=== PATIENT | female | born 1955 | race Caucasian/White ===

== ENCOUNTER 2016-09-25 01:52 | Emergency (ER) | payer OTHER ==
[~2016-09-25 01:52] MED LIST: ACETAMINOPHEN500 MG PO; CLONAZEPAM0.5 MG PO; FERROUS SULFAT324 MG PO; GLIPIZIDE5 MG PO; LAMICTAL100 MG PO; LOSARTAN POTASS1 TA1 PO; METFORMIN HCL850 MG PO; NEURONTIN300 MG PO; PERCOCET1 TA1 PO; PRILOSEC40 MG PO; PROAIR HFA IN; REQUIP0.25 MG PO; VENLAFAXINE HCL25 MG PO
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
--- NOTE | 2016-09-25 02:10 | ED ORDER SUMMARY ---
..... Patient: LELA FANG OrderSheet [facility] VisitID: [id number] [address] [place] [address] 61y, F Registration Date/Time: 09/25/2016 ORDER SHEET Weight: 86.6 kg (stated) Allergies: Estrogen , PCN GENERAL ORDERS: MEDICATION ORDERS: Azithromycin PO 500 mg (NOW) (02:09/25/2016 Miriam Tatum) (2:08 HSoule) Naproxen PO 500 mg (NOW) (02:09/25/2016 Miriam Tatum) (2:09 HSoule) IV FLUIDS: ORDER SHEET NOTES: [Electronically signed by Lisa Roy (02:09/25/2016)] [Electronically signed by Sung Perry Dr. (10:23 09/30/2016)] [Electronically locked/signed by Lisa Roy (09/25/2016)]
--- NOTE | 2016-09-25 02:10 | ED CLINICAL REPORT ---
Clinical Report - Physicians/Mid Levels [facility] [address] [place], [place] [address] 09/25/2016 1:52 Patient: LELA FANG Time Seen: 0155. Arrived- By private vehicle. Historian- patient. HISTORY OF PRESENT ILLNESS Chief Complaint: EARACHE. Modifying factors- worsened by cough. Not relieved by anything. This started today and is still present and worsening. It was abrupt in onset and has been constant but is not gone now. Onset during rest. The patient has had ear pain. She has had nasal congestion and a nasal discharge. Similar symptoms previously: None. Recent medical care: Not recently seen/assessed. REVIEW OF SYSTEMS No difficulty breathing, chest pain, abdominal pain or skin rash. All systems otherwise negative, except as recorded above. PAST HISTORY See nurses notes. Medications: Ferrous Sulfate Oral 325 mg, daily. Gabapentin Oral (Capsule 300 mg) 1 capsule, at bedtime. Glypisde 5mg bid . LamoTRIgine Oral 100mg day . Lipitor Oral. Lorsartin/hctz 100/25mg day. Metformin HCl Oral 850 mg, 2x a day. Omeprazole Oral 40 mg, daily. Requip Oral 0.25 mg, hs . Venlafaxine HCl Oral 75 mg, at bedtime. Allergies: Estrogen . PCN. SOCIAL HISTORY Never smoker. Occasional alcohol use. No drug use. Is a local resident. ADDITIONAL NOTES The nursing notes have been reviewed. PHYSICAL EXAM Vital Signs: 09/25/2016 01:56 BP: 132/76. HR: 76. RR: 17. O2 saturation: 100%. Temp: 98.1 F. Ang-Sanchez pain scale: 4/10. Blood pressure normal. Oxygen saturation normal. Appearance: Alert. No acute distress. ENT: (positive air-fluid levels in the left tympanic membrane. No perforation. Appears bulging. Loss of normalarchitecture of the ear. Right tympanic membrane is normal with normal cone of light. Bilateral external auditory canals are normal. No proptosis of the ear. No tenderness of the mastoid. No crepitus. No overlying skin changes over the mastoid process.). Nose: Nose normal. Neck: Normal inspection. Neck supple. No meningeal signs. CVS: Normal heart rate and rhythm. Heart sounds normal. Respiratory: No respiratory distress. Breath sounds normal. Abdomen: Soft and nontender. : Normal genitalia. Skin: Skin warm and dry. Normal skin color. No rash. Normal skin turgor. CLINICAL IMPRESSION 09/25/2016 01:56 BP: 132/76. HR: 76. RR: 17. O2 saturation: 100%. Temp: 98.1 F. Ang-Sanchez pain scale: 4/10. Blood pressure normal. Oxygen saturation normal. Acute serous left otitis media. No perforation of left tympanic membrane. INSTRUCTIONS Warnings: GENERAL WARNINGS: Return or contact your physician immediately if your condition worsens or changes unexpectedly, if not improving as expected, or if other problems arise. Specifically return if pain, vomiting, bleeding, breathing difficulty or fever. Your Current Medications: CONTINUE TAKING THE FOLLOWING MEDICATIONS: Ferrous Sulfate Oral : 325 mg daily. Gabapentin Oral : Capsule 300 mg, 1 capsule at bedtime. Glypisde 5mg bid *. LamoTRIgine Oral : 100mg day. Lipitor Oral. Lorsartin/hctz 100/25mg day*. Metformin HCl Oral : 850 mg 2x a day. Omeprazole Oral : 40 mg daily. Requip Oral : 0.25 mg hs. Venlafaxine HCl Oral : 75 mg at bedtime. Prescription Medications: Grayling 5 mg / 325 mg tablets: take 1 orally every 6 hours. Dispense ten (10). No refill. Substitution is permissible. Azithromycin Z-Ponce: Take according to package instructions. No refills. (Disp 1 package) Naproxen 500 mg: take 1 orally every 12 hours as needed for pain, stiffness or swelling. Dispense twenty (20). No refills. Follow-up: Return to the emergency department as needed. Follow up with your doctor in three days. Reason for referral: recheck today's concerns. Summary of care provided to patient via paper. Screening today revealed the patient's blood pressure to be in the normal range. The patient should follow up with a primary care provider for blood pressure management. Understanding of the discharge instructions verbalized by patient. (Electronically signed by Sung Perry Dr. 09/30/2016 10:23)
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
--- NOTE | 2016-09-25 02:10 | ED ORDER SUMMARY ---
..... Patient: LELA FANG OrderSheet [facility] VisitID: [id number] [address] [place] [address] 61y, F Registration Date/Time: 09/25/2016 ORDER SHEET Weight: 86.6 kg (stated) Allergies: Estrogen , PCN GENERAL ORDERS: MEDICATION ORDERS: Azithromycin PO 500 mg (NOW) (02:09/25/2016 Miriam Tatum) (2:08 HSoule) Naproxen PO 500 mg (NOW) (02:09/25/2016 Miriam Tatum) (2:09 HSoule) IV FLUIDS: ORDER SHEET NOTES: [Electronically signed by Lisa Roy (02:09/25/2016)] [Electronically signed by Sung Perry Dr. (10:23 09/30/2016)] [Electronically locked/signed by Lisa Roy (09/25/2016)]
--- NOTE | 2016-09-30 10:23 | ED DISCHARGE INSTRUCTIONS ---
Patient: LELA FANG General Instructions [facility] VisitID: [id number] [address] [place] [address] 61y, F Registration Date/Time: 09/25/2016 09/25/2016 01:56 BP: 132/76. HR: 76. RR: 17. O2 saturation: 100%. Temp: 98.1 F. Ang-Sanchez pain scale: 4/10. Blood pressure normal. Oxygen saturation normal. Acute serous left otitis media. No perforation of left tympanic membrane. INSTRUCTIONS Warnings: GENERAL WARNINGS: Return or contact your physician immediately if your condition worsens or changes unexpectedly, if not improving as expected, or if other problems arise. Specifically return if pain, vomiting, bleeding, breathing difficulty or fever. Your Current Medications: CONTINUE TAKING THE FOLLOWING MEDICATIONS: Ferrous Sulfate Oral : 325 mg daily. Gabapentin Oral : Capsule 300 mg, 1 capsule at bedtime. Glypisde 5mg bid *. LamoTRIgine Oral : 100mg day. Lipitor Oral. Lorsartin/hctz 100/25mg day*. Metformin HCl Oral : 850 mg 2x a day. Omeprazole Oral : 40 mg daily. Requip Oral : 0.25 mg hs. Venlafaxine HCl Oral : 75 mg at bedtime. Prescription Medications: Nicolaus 5 mg / 325 mg tablets: take 1 orally every 6 hours. Dispense ten (10). No refill. Substitution is permissible. Azithromycin Z-Ponce: Take according to package instructions. No refills. (Disp 1 package) Naproxen 500 mg: take 1 orally every 12 hours as needed for pain, stiffness or swelling. Dispense twenty (20). No refills. Follow-up: Return to the emergency department as needed. Follow up with your doctor in three days. Reason for referral: recheck today's concerns. Summary of care provided to patient via paper. Screening today revealed the patient's blood pressure to be in the normal range. The patient should follow up with a primary care provider for blood pressure management. Understanding of the discharge instructions verbalized by patient. ADDITIONAL INFORMATION Middle Ear Infection (Adult) You have an infection of the middle ear (the space behind the eardrum). It can occur as a result of the common cold. This is because congestion can block the internal passage (eustachian tube) that drains fluid from the middle ear. When the middle ear fills with fluid, bacteria can grow there and cause an infection. Oral antibiotics are used to treat this illness, not ear drops. Symptoms usually start to improve within 1-2 days of treatment. Home Care: Finish all of the antibiotic medicine prescribed, even though you may feel better after the first few days. You may use acetaminophen (Tylenol) or ibuprofen (Motrin, Advil) to control pain, unless something else was prescribed. [NOTE: If you have chronic liver or kidney disease or have ever had a stomach ulcer or GI bleeding, talk with your doctor before using these medicines.] (Do not give aspirin to anyone under 18 years of age who is ill with a fever. It may cause severe liver damage.) Follow Up with your doctor or this facility in two weeks if all symptoms have not cleared, or if hearing does not return to normal within one month. Get Prompt Medical Attention if any of the following occur: Ear pain gets worse or does not improve after three days of treatment Unusual drowsiness or confusion Neck pain, stiff neck or headache Fluid or blood draining from the ear canal Fever of 100.4F (38C) or higher after 3 days of antibiotics, or as directed by your healthcare provider Convulsion (seizure) Hydrocodone Bitartrate, Acetaminophen Oral tablet What is this medicine? ACETAMINOPHEN; HYDROCODONE (a set a HENRY zina fen; mckay droe KOE done) is a pain reliever. It is used to treat mild to moderate pain. How should I use this medicine? Take this medicine by mouth. Swallow it with a full glass of water. Follow the directions on the prescription label. If the medicine upsets your stomach, take the medicine with food or milk. Do not take more than you are told to take. Talk to your extruding machine operator regarding the use of this medicine in children. This medicine is not approved for use in children. What side effects may I notice from receiving this medicine? Side effects that you should report to your doctor or health hospice care transitions coordinator as soon as possible: allergic reactions like skin rash, itching or hives, swelling of the face, lips, or tongue breathing problems confusion feeling faint or lightheaded, falls stomach pain yellowing of the eyes or skin Side effects that usually do not require medical attention (report to your doctor or health hospice care transitions coordinator if they continue or are bothersome): nausea, vomiting stomach upset What may interact with this medicine? alcohol antihistamines isoniazid medicines for depression, anxiety, or psychotic disturbances medicines for sleep muscle relaxants naltrexone narcotic medicines (opiates) for pain phenobarbital ritonavir tramadol What if I miss a dose? If you miss a dose, take it as soon as you can. If it is almost time for your next dose, take only that dose. Do not take double or extra doses. Where should I keep my medicine? Keep out of the reach of children. This medicine can be abused. Keep your medicine in a safe place to protect it from theft. Do not share this medicine with anyone. Selling or giving away this medicine is dangerous and against the law. Store at room temperature between 15 and 30 degrees C (59 and 86 degrees F). Protect from light. Keep container tightly closed. Throw away any unused medicine after the expiration date. Discard unused medicine and used packaging carefully. Pets and children can be harmed if they find used or lost packages. What should I tell my health care provider before I take this medicine? They need to know if you have any of these conditions: brain tumor Crohn's disease, inflammatory bowel disease, or ulcerative colitis drink more than 3 alcohol-containing drinks per day drug abuse or addiction head injury heart or circulation problems kidney disease or problems going to the bathroom liver disease lung disease, asthma, or breathing problems an unusual or allergic reaction to acetaminophen, hydrocodone, other opioid analgesics, other medicines, foods, dyes, or preservatives or trying to get breast-feeding What should I watch for while using this medicine? Tell your doctor or health hospice care transitions coordinator if your pain does not go away, if it gets worse, or if you have new or a different type of pain. You may develop tolerance to the medicine. Tolerance means that you will need a higher dose of the medicine for pain relief. Tolerance is normal and is expected if you take the medicine for a long time. Do not suddenly stop taking your medicine because you may develop a severe reaction. Your body becomes used to the medicine. This does NOT mean you are addicted. Addiction is a behavior related to getting and using a drug for a non-medical reason. If you have pain, you have a medical reason to take pain medicine. Your doctor will tell you how much medicine to take. If your doctor wants you to stop the medicine, the dose will be slowly lowered over time to avoid any side effects. You may get drowsy or dizzy when you first start taking the medicine or change doses. Do not drive, use machinery, or do anything that may be dangerous until you know how the medicine affects you. Stand or sit up slowly. There are different types of narcotic medicines (opiates) for pain. If you take more than one type at the same time, you may have more side effects. Give your health care provider a list of all medicines you use. Your doctor will tell you how much medicine to take. Do not take more medicine than directed. Call emergency for help if you have problems breathing. The medicine will cause constipation. Try to have a bowel movement at least every 2 to 3 days. If you do not have a bowel movement for 3 days, call your doctor or health hospice care transitions coordinator. Too much acetaminophen can be very dangerous. Do not take Tylenol (acetaminophen) or medicines that contain acetaminophen with this medicine. Many non-prescription medicines contain acetaminophen. Always read the labels carefully. Azithromycin Oral tablet What is this medicine? AZITHROMYCIN (az ith mar MYE sin) is a macrolide antibiotic. It is used to treat or prevent certain kinds of bacterial infections. It will not work for colds, flu, or other viral infections. How should I use this medicine? Take this medicine by mouth with a full glass of water. Follow the directions on the prescription label. The tablets can be taken with food or on an empty stomach. If the medicine upsets your stomach, take it with food. Take your medicine at regular intervals. Do not take your medicine more often than directed. Take all of your medicine as directed even if you think your are better. Do not skip doses or stop your medicine early. Talk to your extruding machine operator regarding the use of this medicine in children. Special care may be needed. What side effects may I notice from receiving this medicine? Side effects that you should report to your doctor or health hospice care transitions coordinator as soon as possible: allergic reactions like skin rash, itching or hives, swelling of the face, lips, or tongue confusion, nightmares or hallucinations dark urine difficulty breathing hearing loss irregular heartbeat or chest pain pain or difficulty passing urine redness, blistering, peeling or loosening of the skin, including inside the mouth white patches or sores in the mouth yellowing of the eyes or skin Side effects that usually do not require medical attention (report to your doctor or health hospice care transitions coordinator if they continue or are bothersome): diarrhea dizziness, drowsiness headache stomach upset or vomiting tooth discoloration vaginal irritation What may interact with this medicine? Do not take this medicine with any of the following medications: lincomycin This medicine may also interact with the following medications: amiodarone antacids cyclosporine digoxin magnesium nelfinavir phenytoin warfarin What if I miss a dose? If you miss a dose, take it as soon as you can. If it is almost time for your next dose, take only that dose. Do not take double or extra doses. Where should I keep my medicine? Keep out of the reach of children. Store at room temperature between 15 and 30 degrees C (59 and 86 degrees F). Throw away any unused medicine after the expiration date. What should I tell my health care provider before I take this medicine? They need to know if you have any of these conditions: kidney disease liver disease irregular heartbeat or heart disease an unusual or allergic reaction to azithromycin, erythromycin, other macrolide antibiotics, foods, dyes, or preservatives or trying to get breast-feeding What should I watch for while using this medicine? Tell your doctor or health hospice care transitions coordinator if your symptoms do not improve. Do not treat diarrhea with over the counter products. Contact your doctor if you have diarrhea that lasts more than 2 days or if it is severe and watery. This medicine can make you more sensitive to the sun. Keep out of the sun. If you cannot avoid being in the sun, wear protective clothing and use sunscreen. Do not use sun lamps or tanning beds/booths. Naproxen Sodium Oral tablet What is this medicine? NAPROXEN (na PROX en) is a non-steroidal anti-inflammatory drug (NSAID). It is used to reduce swelling and to treat pain. This medicine may be used for dental pain, headache, or painful monthly periods. It is also used for painful joint and muscular problems such as arthritis, tendinitis, bursitis, and gout. How should I use this medicine? Take this medicine by mouth with a glass of water. Follow the directions on the prescription label. Take it with food if your stomach gets upset. Try to not lie down for at least 10 minutes after you take it. Take your medicine at regular intervals. Do not take your medicine more often than directed. Long-term, continuous use may increase the risk of heart attack or stroke. A special MedGuide will be given to you by the pharmacist with each prescription and refill. Be sure to read this information carefully each time. Talk to your extruding machine operator regarding the use of this medicine in children. Special care may be needed. What side effects may I notice from receiving this medicine? Side effects that you should report to your doctor or health hospice care transitions coordinator as soon as possible: black or bloody stools, blood in the urine or vomit blurred vision chest pain difficulty breathing or wheezing nausea or vomiting severe stomach pain skin rash, skin redness, blistering or peeling skin, hives, or itching slurred speech or weakness on one side of the body swelling of eyelids, throat, lips unexplained weight gain or swelling unusually weak or tired yellowing of eyes or skin Side effects that usually do not require medical attention (report to your doctor or health hospice care transitions coordinator if they continue or are bothersome): constipation headache heartburn What may interact with this medicine? alcohol aspirin cidofovir diuretics lithium methotrexate other drugs for inflammation like ketorolac or prednisone pemetrexed probenecid warfarin What if I miss a dose? If you miss a dose, take it as soon as you can. If it is almost time for your next dose, take only that dose. Do not take double or extra doses. Where should I keep my medicine? Keep out of the reach of children. Store at room temperature between 15 and 30 degrees C (59 and 86 degrees F). Keep container tightly closed. Throw away any unused medicine after the expiration date. What should I tell my health care provider before I take this medicine? They need to know if you have any of these conditions: asthma cigarette smoker drink more than 3 alcohol containing drinks a day heart disease or circulation problems such as heart failure or leg edema (fluid retention) high blood pressure kidney disease liver disease stomach bleeding or ulcers an unusual or allergic reaction to naproxen, aspirin, other NSAIDs, other medicines, foods, dyes, or preservatives or trying to get breast-feeding What should I watch for while using this medicine? Tell your doctor or health hospice care transitions coordinator if your pain does not get better. Talk to your doctor before taking another medicine for pain. Do not treat yourself. This medicine does not prevent heart attack or stroke. In fact, this medicine may increase the chance of a heart attack or stroke. The chance may increase with longer use of this medicine and in people who have heart disease. If you take aspirin to prevent heart attack or stroke, talk with your doctor or health hospice care transitions coordinator. Do not take other medicines that contain aspirin, ibuprofen, or naproxen with this medicine. Side effects such as stomach upset, nausea, or ulcers may be more likely to occur. Many medicines available without a prescription should not be taken with this medicine. This medicine can cause ulcers and bleeding in the stomach and intestines at any time during treatment. Do not smoke cigarettes or drink alcohol. These increase irritation to your stomach and can make it more susceptible to damage from this medicine. Ulcers and bleeding can happen without warning symptoms and can cause . You may get drowsy or dizzy. Do not drive, use machinery, or do anything that needs mental alertness until you know how this medicine affects you. Do not stand or sit up quickly, especially if you are an older patient. This reduces the risk of dizzy or fainting spells. This medicine can cause you to bleed more easily. Try to avoid damage to your teeth and gums when you brush or floss your teeth. You have been given the following additional information: Otitis Media, Abx Tx (Adult) Hydrocodone Bitartrate, Acetaminophen Oral tablet Azithromycin Oral tablet Naproxen Sodium Oral tablet (Electronically signed by Sung Perry Dr. 09/30/2016 10:23)
--- NOTE | 2016-09-30 10:23 | ED MAR SUMMARY ---
..... Medication Administration Record [facility] [address] [place] [address] Patient: LELA FANG Visit ID: [id number] 61y, F Weight: 86.6 kg Height/Length: 62 in BMI: 35 ALLERGIES: Estrogen , PCN Given 02:08 09/25/2016 Lisa Roy, Medication Administered: AZITHROMYCIN [PO], Dose: 500 mg Tablets PO. Medication Ordered: Azithromycin PO 500 mg (NOW). Given 02:09 09/25/2016 Lisa Roy, Medication Administered: NAPROXEN [PO], Dose: 500 mg Capsules PO. Medication Ordered: Naproxen PO 500 mg (NOW).
--- NOTE | 2016-09-30 10:23 | ED MED RECONCILIATION SUMMARY ---
Patient: LELA FANG Medication Reconciliation Report [facility] VisitID: [id number] [address] [place] [address] 61y, F Registration Date/Time: 09/25/2016 Weight: 86.6 kg Height/Length: 62 in. BMI: 35.0 ALLERGIES: Estrogen , PCN The patient's Home Medications are listed below: CONTINUE TAKING THE FOLLOWING MEDICATIONS: Ferrous Sulfate Oral 325 mg, daily Gabapentin Oral (300 mg) 1 capsule, at bedtime Glypisde 5mg bid LamoTRIgine Oral 100mg day Lipitor Oral Lorsartin/hctz 100/25mg day Metformin HCl Oral 850 mg, 2x a day Omeprazole Oral 40 mg, daily Requip Oral 0.25 mg, hs Venlafaxine HCl Oral 75 mg, at bedtime The source(s) of the original Home Medication information: Not obtained. The following Medications were given to the patient in the Emergency Department: Azithromycin [PO] PO 500 mg, administered: 09/25/2016 2:08:00 AM Naproxen [PO] PO 500 mg, administered: 09/25/2016 2:09:00 AM The following Medications were prescribed to the patient: Holland 5 mg / 325 mg tablets: take 1 orally every 6 hours. Dispense ten (10). No refill. Substitution is permissible. -- Sung Perry Dr. Azithromycin Z-Ponce: Take according to package instructions. No refills.(Disp 1 package) -- Sung Perry Dr. Naproxen 500 mg: take 1 orally every 12 hours as needed for pain, stiffness or swelling. Dispense twenty (20). No refills. -- Sung Perry Dr.
--- NOTE | 2016-09-30 10:23 | ED MAR SUMMARY ---
..... Medication Administration Record [facility] [address] [place] [address] Patient: LELA FANG Visit ID: [id number] 61y, F Weight: 86.6 kg Height/Length: 62 in BMI: 35 ALLERGIES: Estrogen , PCN Given 02:08 09/25/2016 Lisa Roy, Medication Administered: AZITHROMYCIN [PO], Dose: 500 mg Tablets PO. Medication Ordered: Azithromycin PO 500 mg (NOW). Given 02:09 09/25/2016 Lisa Roy, Medication Administered: NAPROXEN [PO], Dose: 500 mg Capsules PO. Medication Ordered: Naproxen PO 500 mg (NOW).
--- NOTE | 2016-09-30 10:23 | ED MED RECONCILIATION SUMMARY ---
Patient: LELA FANG Medication Reconciliation Report [facility] VisitID: [id number] [address] [place] [address] 61y, F Registration Date/Time: 09/25/2016 Weight: 86.6 kg Height/Length: 62 in. BMI: 35.0 ALLERGIES: Estrogen , PCN The patient's Home Medications are listed below: CONTINUE TAKING THE FOLLOWING MEDICATIONS: Ferrous Sulfate Oral 325 mg, daily Gabapentin Oral (300 mg) 1 capsule, at bedtime Glypisde 5mg bid LamoTRIgine Oral 100mg day Lipitor Oral Lorsartin/hctz 100/25mg day Metformin HCl Oral 850 mg, 2x a day Omeprazole Oral 40 mg, daily Requip Oral 0.25 mg, hs Venlafaxine HCl Oral 75 mg, at bedtime The source(s) of the original Home Medication information: Not obtained. The following Medications were given to the patient in the Emergency Department: Azithromycin [PO] PO 500 mg, administered: 09/25/2016 2:08:00 AM Naproxen [PO] PO 500 mg, administered: 09/25/2016 2:09:00 AM The following Medications were prescribed to the patient: Denver 5 mg / 325 mg tablets: take 1 orally every 6 hours. Dispense ten (10). No refill. Substitution is permissible. -- Sung Perry Dr. Azithromycin Z-Ponce: Take according to package instructions. No refills.(Disp 1 package) -- Sung Perry Dr. Naproxen 500 mg: take 1 orally every 12 hours as needed for pain, stiffness or swelling. Dispense twenty (20). No refills. -- Sung Perry Dr.
[2017-01-06] MEDS ORDERED: INVOKANA100 MG PO (16:27)
[2017-01-06] MEDS ORDERED: LIPITOR80 MG PO (16:44)
[2017-01-06] MEDS ORDERED: LEVAQUIN500 MG PO (16:45)
[2017-01-06] MEDS ORDERED: IBUPROFEN400 MG PO (16:46)
== END 2016-09-25 02:15 | disposition home or self-care (01) ==
LOC: ED SRH 01:52
DX: H65.02 Acute serous otitis media, left ear (principal); K21.9 Gastro-esophageal reflux disease without esophagitis; I10 Essential (primary) hypertension; E11.9 Type 2 diabetes mellitus without complications; Z88.0 Allergy status to penicillin; Z79.84 Long term (current) use of oral hypoglycemic drugs; Z79.899 Other long term (current) drug therapy

== ENCOUNTER 2017-01-22 06:22 | Day surgery (SDC) | payer OTHER ==
[~2017-01-22] VITALS: Ht 160 cm; Wt 88.1 kg
[~2017-01-22 06:22] MED LIST changes: +IBUPROFEN400 MG PO; +INVOKANA100 MG PO; +LEVAQUIN500 MG PO; +LIPITOR80 MG PO
[2017-01-22] MEDS ORDERED: PERCOCET1 TA1 PO (09:29)
--- NOTE | 2017-01-22 09:31 | Provider's Discharge Care Plan ---
Problem, Goal, Plan Problem List 1. STATUS POST REPAIR OF RECURRENT MIDLINE INCISIONAL HERNIA Goals: Improve disease control, Improve function, Therapeutic intervention Instructions: Follow up as directed, Take meds as directed, abdominal binder 02/03
--- NOTE | 2017-01-22 09:39 | Operative Report ---
Operative Report Date of Surgery: 01/22/17 Preoperate Diagnosis: recurrent incisional hernias Postoperative Diagnosis: recurrent incisional hernias Surgeon: Walt Vega MD Binding Bench Worker Surgeon: none Procedure Performed: Repair of recurrent incisional midline hernia Anesthesia: Gen. endotracheal anesthesia Indications: A 61-year-old female who is undergoing multiple abdominal procedures the posterior one and a half years ago had repair of multiple incisional hernias and umbilicus. The fascia for 6 months who developed a bulge midline abdomen which she feels is slowly enlarging and associated with nausea. FINDINGS: Obese abdomen, multiple midline scars. Multiple small (3) midline recurrent incisional hernias. Surgical Technique: Patient brought to the operating room, placed in the dorsal supine position. Patient underwent general endotracheal anesthesia by the anesthesiology department. After proper anesthesia had taken effect, her abdomen was prepped using Betadine and draped in a sterile fashion. The site previously identified in the preop holding area was once again identified. The midline was infiltrated using local anesthetic. An incision made in the previous scar, carried through skin, subcutaneous. Dissection continued down using electrocautery onto the fascia. The peritoneal cavity was entered being careful to avoid injury to the underlying contents. Palpation of the midline from within the abdomen revealed several small fascial defects. Each of these defects contained omentum. The omentum was reduced and adhesions to the undersurface of the gallbladder wall were taken down using blunt and sharp dissection. No further hernias palpated from within the abdomen, the fascial defect and the fascial edges were approximated using #1 Maxon in continuous fashion. Subcutaneous tissue was irrigated, and normal saline. The fascia was infiltrated using local anesthetic. Subcutaneous tissue was approximated using 3-0 Polysorb suture to prevent seroma formation. Skin was approximated using running 4-0 subdermal Polysorb. Steri-Strips placed over the wound. Sterile pressure dressing placed over the wound. Patient was placed in abdominal binder. Patient was extubated and transferred to the recovery room in stable condition. There were no intraoperative or anesthetic complications. CONDITION: Stable to postoperative anesthesia recovery room COMPLICATIONS: None ESTIMATED BLOOD LOSS: None FLUIDS:: 400 cc lactated Ringer's DRAINS/PACKING: None SPECIMEN: None
[2017-01-22 13:58] VITALS: BP 101/83
== END 2017-01-22 13:49 | disposition home or self-care (01) ==
LOC: OR SRH 06:22 → SCU SRH 06:22 → OR SRH 08:15
PROVIDERS: Specialist
PROC: 0WQF0ZZ Repair Abdominal Wall, Open Approach (ICD-10-PCS; principal; 2017-01-22 08:15)
DX: K43.2 Incisional hernia without obstruction or gangrene (principal); E11.9 Type 2 diabetes mellitus without complications; Z79.84 Long term (current) use of oral hypoglycemic drugs; I10 Essential (primary) hypertension
CPT/HCPCS: 29229; 29240; 50002; 60001; 70002; 80102; 80212; 83125; 84038; 84041; 84046